=== PATIENT | female | born 1970 | race Caucasian/White ===

== ENCOUNTER 2023-05-17 11:57 | Day surgery (SDC) | payer OTHER ==
[2023-05-17] MEDS ORDERED: Sodium Chloride 0.9% 1,000 ML IV ONE (12:19)
[2023-05-17 12:26] LABS: BASOPHILS PERCENT AUTO 0.2 % (0.0-1.5); HEMATOCRIT 44.1 % (36.0-46.0); HEMOGLOBIN 14.3 g/dL (12.0-16.0); LYMPHOCYTES ABSOLUTE AUTO 1.1 K/uL (0.6-2.4); LYMPHOCYTES PERCENT AUTO 13.6 % (16.0-40.0); MEAN CORPUSCULAR HGB CONC 32.4 g/dL (31.0-37.0); MEAN CORPUSCULAR VOLUME 83.2 fL (80.0-98.0); MONOCYTES ABSOLUTE AUTO 0.5 K/uL (0.0-0.8); MONOCYTES PERCENT AUTO 5.5 % (0.0-15.0); NEUTROPHILS ABSOLUTE AUTO 6.8 K/uL (1.4-5.7); NEUTROPHILS PERCENT AUTO 80.7 % (48.0-80.0); NRBC ABSOLUTE 0 K/uL; PLATELET COUNT,PLT 268 K/uL (150-400); WHITE BLOOD CELL COUNT,WBC 8.41 K/uL (4.0-11.0)
[2023-05-17 12:44] LABS: A/G RATIO 0.8 (0.9-1.6); ALBUMIN 3.4 g/dL (3.4-5.0); BILIRUBIN TOTAL 0.7 mg/dL (0.2-1.0); CALCIUM 8.6 mg/dL (8.5-10.1); CREATININE 1.1 mg/dL (0.6-1.0); POTASSIUM,K 3.6 mmol/L (3.5-5.1); PROTEIN TOTAL,TP 7.7 g/dL (6.4-8.2)
[2023-05-17 12:54] LABS: LACTIC ACID 1.3 mmol/L (0.4-2.0)
[2023-05-17] MEDS ORDERED: Iopamidol 755 Mg/ML 100 ML Bottle IVPUSH ONE (13:32)
[2023-05-17 14:05] LABS: APPEARANCE,URINE SLT CLOUDY; BILIRUBIN,URINE NEGATIVE (NEGATIVE); COLOR,URINE YELLOW; GLUCOSE,URINE NEGATIVE (NEGATIVE); KETONES,URINE NEGATIVE (NEGATIVE); LEUKOCYTE ESTERASE,URINE SMALL (NEGATIVE); NITRITE,URINE NEGATIVE (NEGATIVE); OCCULT BLOOD,URINE NEGATIVE (NEGATIVE); PH,URINE 6.5 (5.0-8.0); PROTEIN,URINE NEGATIVE (NEGATIVE); UROBILINOGEN,URINE 0.2 EU/dL (<2.0)
[2023-05-17 14:15] LABS: BACTERIA,URINE 3+ (NEGATIVE); EPITHELIAL CELLS,URINE MANY (NONE-FEW); MUCUS,URINE LIGHT (NONE-MOD); RBC,URINE 0-2 (0-2/HPF)
[2023-05-17] MEDS ORDERED: Ertapenem 1 GM in Sodium Chloride 0.9% 50 ML IV ONE (14:25)
[2023-05-17] MEDS ORDERED: Morphine 4 MG/ML Syringe IVPUSH ONE (14:26)
[2023-05-17] MEDS ORDERED: Ondansetron 4 MG/2 ML SDV IVPUSH ONE (14:26)
[2023-05-17] MEDS: Lactated Ringers 1,000 ML IV SCH ×2 (14:43→22:23)
[2023-05-17] MEDS ORDERED: Rocuronium Bromide 50 MG/5 ML Syringe ONE (15:10)
[2023-05-17] MEDS ORDERED: Ketorolac 30 MG/ML SDV ONE (15:10)
[2023-05-17] MEDS ORDERED: Propofol 200 MG/20 ML SDV ONE (15:10)
[2023-05-17] MEDS ORDERED: fentaNYL 100 MCG/2 ML SDV ONE (15:10)
[2023-05-17] MEDS ORDERED: Sugammadex Sodium 200 MG/2 ML VIAL ONE (15:10)
[2023-05-17] MEDS ORDERED: Ondansetron 4 MG/2 ML SDV ONE (15:10)
[2023-05-17] MEDS ORDERED: Dexamethasone 4 MG/ML 5 ML MDV ONE (15:10)
[2023-05-17] MEDS ORDERED: Lidocaine 2% 5 ML SDV ONE (15:10)
[2023-05-17] MEDS ORDERED: Bupivacaine 0.5% 30 ML SDV ONE (15:22)
[2023-05-17] MEDS ORDERED: Bupivacaine 0.25% 30 ML SDV ONE (15:35)
[2023-05-17] MEDS ORDERED: Ropivacaine 0.5% 5 MG/ML 30 ML SDV ONE (15:35)
[2023-05-17] MEDS ORDERED: Morphine 2 MG/ML SYRINGE IVPUSH PRN (17:13)
[2023-05-17] MEDS ORDERED: fentaNYL 50 MCG/ML SDV IVPUSH PRN (17:13)
[2023-05-17] MEDS ORDERED: Acetaminophen/HYDROcodone 325-5 MG Tab PO PRN (17:13)
[2023-05-17] MEDS ORDERED: HYDROmorphone 2 MG/ML Syringe IVPUSH PRN (17:13)
[2023-05-17] MEDS ORDERED: Ondansetron 4 MG/2 ML SDV IVPUSH PRN ×2 (17:13)
[2023-05-17] MEDS ORDERED: Albuterol 0.083% 2.5 MG/3 ML Neb Soln NEB PRN (17:13)
[2023-05-17] MEDS ORDERED: Metoclopramide 10 MG/2 ML SDV IVPUSH PRN (17:13)
[2023-05-17] MEDS ORDERED: HYDROmorphone 1 MG/ML Syringe IVPUSH PRN (17:13)
[2023-05-17] MEDS ORDERED: Naloxone 0.4 MG/ML SDV IVPUSH PRN (17:13)
[2023-05-17] MEDS ORDERED: droPERidol 5 MG/2 ML SDV IVPUSH PRN (17:13)
[2023-05-17] MEDS ORDERED: Phenol 1.4% Oral Spray 177 ML Bottle MUCMEM PRN (20:51)
[2023-05-18] MEDS ORDERED: Acetaminophen 325 MG Tab PO PRN (07:20)
== END 2023-05-18 10:45 | disposition home or self-care (01) ==
LOC: MW.ED 11:57 → MW.SDS 14:59 → MW.MS 15:03 → MW.SDS 05-18 10:45
PROVIDERS: ATTEND Surgery
DX: K35.30 Acute appendicitis with localized peritonitis, without perforation or gangrene (principal); N39.0 Urinary tract infection, site not specified; E66.9 Obesity, unspecified; Z88.5 Allergy status to narcotic agent; Z79.899 Other long term (current) drug therapy; Z68.42 Body mass index [BMI] 45.0-49.9, adult
CPT/HCPCS: 36415; 44970; 74177; 80053; 81001; 83605; 83690; 85025; 87040; 87086; 96361; 96365; 96375; 99285; A9270; J1100; J1335; J1885; J2270; J2405; J2704; J2795; J3010; J3490; J7030; J7120; Q9967; 00840; 64488; 99284